=== PATIENT | female | born 1965 | race Caucasian/White ===

== ENCOUNTER 2019-06-26 04:47 | Day surgery (SDC) | payer OTHER ==
[2019-06-25 15:56] VITALS: BMI 42.7
[2019-06-26] MEDS ORDERED: BUPIVACAINE HCL/PF 0.5% (5 MG/ML) 30 ML VIAL IJ ONE ×2 (07:10→08:06)
[2019-06-26] MEDS ORDERED: LIDOCAINE HCL 1%, 10 MG/ML (20ML VIAL) ONE (07:10)
--- NOTE | 2019-06-26 07:42 | HP ---
[facility]ellite [facility] - Chief Complaint Chief Complaint: right small finger extensor tendon laceration History of Present Illness: laceration with a knife, right small finger History Source: Patient Limitations to Obtaining History: No Limitations - Past Medical History Allergies/Adverse Reactions: Allergies Allergy/AdvReac Type Severity Reaction Status Date / Time codeine AdvReac Nausea Verified 06/26/19 06:26 Penicillins AdvReac Vomiting Verified 06/26/19 06:26 ...LMP Comment: LMP- 5 YEARS AGO - Current Medications Current Medications: Home Medications Medication Instructions Recorded NK [No Known Home Medication] 06/25/19 Satellite Physical Exam - Physical Examination Vital Signs: Vital Signs Period Temp Pulse Resp BP Sys/Dorman Pulse Ox Last 24 Hr 98.1 F-98.1 F 67-67 20-20 111-111/75-75 97 General Appearance: Well Nourished ENT: Clear Lung: Clear to auscultation Heart: Regular rate & rhythm Breasts: Soft Abdomen: Soft Extremities: No edema Satellite Impression/Plan - Impression/Plan Impression: right small finger extensor tendon laceration Operative Procedure: open repair right small finger extensor tendon Date to be Performed: 06/26/19
[2019-06-26] MEDS ORDERED: oxyCODONE HCL 5 MG TABLET PO PRN (07:44)
[2019-06-26] MEDS ORDERED: ONDANSETRON 4 MG/2 ML VIAL IVPUSH PRN (07:44)
[2019-06-26] MEDS ORDERED: LACTATED RINGERS SOLUTION 1,000 ML IV SCH (07:45)
[2019-06-26] MEDS ORDERED: MIDAZOLAM HCL 2 MG/2 ML SINGLE DOSE VIAL ONE (07:51)
[2019-06-26] MEDS ORDERED: PROPOFOL 20 ML ONE ×5 (07:51→08:34)
[2019-06-26] MEDS ORDERED: CLINDAMYCIN 600 MG PREMIX BAG IVPB ONE (07:55)
[2019-06-26] MEDS ORDERED: CLINDAMYCIN PHOSPHATE 600 MG/4 ML VIAL ONE (07:57)
[2019-06-26] MEDS ORDERED: LIDOCAINE HCL 1%, 10 MG/ML (20ML VIAL) NR ONE (08:06)
--- NOTE | 2019-06-26 09:09 | OP ---
Operative Note - Note: Operative Date: 06/26/19 Pre-Operative Diagnosis: right small finger extensor tendon laceration Operation: right small finger extensor tendon repair Post-Operative Diagnosis: Same as Pre-op Surgeon: Sanjay Garland Anesthesiologist/[employer]GING PL[employer]ACER: Pravin Oliveira Anesthesia: Local, MAC Estimated Blood Loss (mls): 0 Drains, Volume Out (mls): 0 Blood Volume Replaced (mls): 0 Fluid Volume Replaced (mls): 500 Operative Report Dictated: Yes
--- NOTE | 2019-06-26 09:27 | OP ---
DATE OF OPERATION: 06/26/2019 PREOPERATIVE DIAGNOSIS: Laceration, right small finger extensor tendon. POSTOPERATIVE DIAGNOSIS: Laceration, right small finger extensor tendon. PROCEDURE: Open repair, right small finger extensor tendon. SURGEON: Sanjay Garland MD ASSISTANTS: None. ANESTHESIOLOGIST: ANESTHESIA: MAC anesthesia with local injection of 8 mL 0.5% Marcaine, 1% lidocaine mix. DRAINS: None. SPECIMEN: None. COMPLICATIONS: None. BLOOD LOSS: None. BLOOD GIVEN: None. FLUID REPLACEMENT: Plasmalyte 500 mL. INDICATIONS: This patient is a 53-year-old female with a preoperative diagnosis of accidental self-inflicted laceration to the right small finger extensor tendon at the level of the DIP joint yesterday. Patient understands the potential risks, complications, alternatives, and benefits of surgical versus nonsurgical treatment. She understands she may not have complete and normal function of this left small finger, including flexion and extension. She may have temporary or permanent paresthesias. DESCRIPTION OF PROCEDURE: The patient is brought to the operating room, peripheral IV placed, IV sedation given, 600 mg of clindamycin was given. MAC anesthesia was induced. Tourniquet was applied to the right upper arm. The entire case was done under 3.8 loupe magnification. The right upper extremity was then prepped and draped in sterile fashion, elevated, exsanguinated with an Esmarch bandage and the tourniquet inflated to 250 mmHg. An H-shaped incision was marked out with a marking pen, but to start, only the ulnar proximal aspect of the flap and the radial distal aspect of the flap incisions were made with a No. 15 scalpel blade. Deeper dissection was done with Littler scissors. Subcutaneous hemostasis was achieved with a bipolar cautery. Great care was taken to identify and retract and protect all crossing neurovascular structures. The Littler scissors were used to free the subcutaneous tissue from the extensor tendon both distal and proximal to the laceration. Silk 2-0 sutures were placed as retraction sutures into both flaps. What we found was that the distal stump was intact on the bone. It was good tissue but quite small, quite short, but good enough to use for the repair. The proximal stump was present, not retracted, but extremely thin and wispy. That being said, there was nothing else to use, so this would be used for the repair. A 0.062 K-wire was then utilized to pin the DIP joint in mild hyperextension. She kept going into a significant boutonniere deformity, and therefore I used the pin to cross the PIP joint, keeping that straight as well. The pin was then bent, cut, and a green pin cap applied. Next, the area was irrigated and washed out. I explored and was not able to identify any other extensor tendon tissue. I then did several single interrupted and mattress sutures using 4-0 nylon to do the open direct repair of the tendon. What was there to work with came together quite nicely. It was irrigated and washed out. I did not see or feel any other tissue to repair. The skin flaps were then closed with single interrupted and horizontal mattress 4-0 nylon sutures. The area was then washed and dried, then 8 mL 0.5% Marcaine, 1% lidocaine mix had been injected previously as a metacarpal head block and around the surgical incision. Xeroform was used to cover the incision and the base of the pin. Fluffs were used between the fingers. Sterile 4 x 4's were used over the pin and the incision site. It was then wrapped with Webril, 4-inch Orthoglass volar splint holding the MP joint in mild flexion and the finger straight was applied, wrapped with Devorah and Coban. Tourniquet was taken down after total tourniquet time of 38 minutes. There were no complications during the case. The patient tolerated the procedure well, was brought to the ambulatory recovery room in stable condition. Bob [id number]
[2019-06-26 10:27] VITALS: TEMP 97.9
[2019-06-26 12:06] VITALS: BP 127/65; PULSE 74
== END 2019-06-26 11:40 | disposition home or self-care (01) ==
LOC: JASU-SURG 04:47
PROVIDERS: ATTEND Orthopaedic Surgery
PROC: 0LQ70ZZ Repair Right Hand Tendon, Open Approach (ICD-10-PCS; principal; 2019-06-26 07:50)
DX: S66.326A Laceration of extensor muscle, fascia and tendon of right little finger at wrist and hand level, initial encounter (principal); X58.XXXA Exposure to other specified factors, initial encounter; Y93.9 Activity, unspecified; Y92.9 Unspecified place or not applicable; Y99.9 Unspecified external cause status
CPT/HCPCS: 94760